=== PATIENT | female | born 2005 | race Caucasian/White ===

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

== ENCOUNTER 2024-12-02 01:36 | Inpatient (IN) | payer BC ==
[~2024-12-02] VITALS: Ht 162.6 cm; Wt 49.8 kg
[~2024-12-02 01:36] MED LIST: FLUO-351 PO
[2024-12-02] MEDS ORDERED: ZOLPIDEM TARTRATE 10 MG TABLET PO PRN (03:30)
[2024-12-02 04:59] VITALS: RESP 20
[2024-12-02] MEDS ORDERED: LORazepam 2 MG/ML VIAL ONE (05:19)
[2024-12-02 05:35] LABS: GLUCOMETER DEV NAME(LOC) POC.BV; POC SARS-COV2 AG, FIA NEGATIVE (NEGATIVE)
[2024-12-02] MEDS: LORazepam 2 MG/ML VIAL IM ONE (05:49)
[2024-12-02] MEDS ORDERED: INFLUENZA VIRUS VACCINE TVS (6MO+) 2025-26/PF 45 MCG/0.5 ML SYRINGE IM. ONE (06:45)
[2024-12-02 08:26] VITALS: RESP 18
[2024-12-02] MEDS: AMOX TR/POT CLAV 500 MG/125 MG TABLET PO SCH (09:00)
[2024-12-02] MEDS ORDERED: ACETAMINOPHEN 325 MG TABLET PO PRN (12:45)
[2024-12-02] MEDS ORDERED: GuaiFENesin/D-METHORPHAN [SUGAR-FREE] 200-20MG/10 ML SYRUP UDCUP PO PRN (12:45)
[2024-12-02] MEDS ORDERED: PROMETHAZINE HCL 25 MG TABLET PO PRN (12:45)
[2024-12-02] MEDS: MELATONIN 5 MG TABLET PO ONE (12:45)
[2024-12-02] MEDS ORDERED: MAGNESIUM HYDROXIDE SUSPENSION 30 ML UDCUP PO PRN (12:45)
[2024-12-02] MEDS ORDERED: MAG HYDROX/ALUMINUM HYD/SIMETH ES 30 ML SUSPENSION UDCUP PO PRN (12:45)
[2024-12-02] MEDS ORDERED: LOPERAMIDE HCL 2 MG CAPSULE PO PRN (12:45)
[2024-12-02] MEDS ORDERED: TUBERCULIN, PURIFIED PROTEIN DERIVATIVE 5 TU/0.1 ML SYRINGE ID ONE (12:45)
[2024-12-02] MEDS: THIAMINE 100 MG TABLET PO SCH (17:00)
[2024-12-02] MEDS ORDERED: DIVALPROEX SODIUM 500 MG ER TABLET PO SCH (21:00)
[2024-12-02] MEDS: OLANZapine 5 MG RAPDIS TABLET PO SCH (22:00)
[2024-12-02 23:05] VITALS: RESP 18
[2024-12-03] MEDS: NALTREXONE HCL 50 MG TABLET PO SCH (08:34)
[2024-12-03] MEDS: FOLIC ACID 1 MG TABLET PO SCH (08:34)
[2024-12-03] MEDS: MULTIVITAMINS WITH MINERALS, THERAPEUTIC TABLET PO SCH (08:34)
[2024-12-03 08:44] VITALS: BP 122/82; PULSE 72; RESP 16; TEMP 97.5; O2SAT 100
[2024-12-03] MEDS ORDERED: ACETAMINOPHEN 325 MG TABLET PO PRN (08:45)
[2024-12-03] MEDS ORDERED: LOPERAMIDE HCL 2 MG CAPSULE PO PRN (17:00)
[2024-12-03] MEDS ORDERED: MAG HYDROX/ALUMINUM HYD/SIMETH ES 30 ML SUSPENSION UDCUP PO PRN (17:00)
[2024-12-03] MEDS ORDERED: TUBERCULIN, PURIFIED PROTEIN DERIVATIVE 5 TU/0.1 ML SYRINGE ID ONE (17:00)
[2024-12-03] MEDS ORDERED: PROMETHAZINE HCL 25 MG TABLET PO PRN (17:00)
[2024-12-03] MEDS ORDERED: MAGNESIUM HYDROXIDE SUSPENSION 30 ML UDCUP PO PRN (17:00)
[2024-12-03 20:37] VITALS: BP 113/78; PULSE 77; RESP 18; TEMP 97.5; O2SAT 95
[2024-12-04 09:00] VITALS: BP 118/76; PULSE 84; RESP 15; TEMP 97.5; O2SAT 98
[2024-12-04 13:39] VITALS: RESP 16
[2024-12-04] MEDS: IBUPROFEN 600 MG TABLET PO PRN (13:39)
[2024-12-04 14:39] VITALS: RESP 16
[2024-12-04] MEDS ORDERED: OLAN5TAB94 PO (21:30)
[2024-12-04] MEDS ORDERED: NALT50TA33 PO (21:30)
[2024-12-04] MEDS ORDERED: FLUO-418 PO (21:30)
== END 2024-12-04 22:00 | disposition short-term general hospital (02) | DRG 885 ==
LOC: B2S 03:23
PROVIDERS: ADMIT Psychiatry & Neurology Psychiatry; ATTEND Psychiatry & Neurology Psychiatry
PROC: GZHZZZZ Group Psychotherapy (ICD-10-PCS; principal; 2024-12-02)
PROC: GZ58ZZZ Individual Psychotherapy, Cognitive-Behavioral (ICD-10-PCS; 2024-12-02)
PROC: GZ56ZZZ Individual Psychotherapy, Supportive (ICD-10-PCS; 2024-12-02)
DX: F25.9 Schizoaffective disorder, unspecified (principal); Z59.02 Unsheltered homelessness; Z20.822 Contact with and (suspected) exposure to COVID-19; F17.200 Nicotine dependence, unspecified, uncomplicated; Z55.9 Problems related to education and literacy, unspecified; Z59.9 Problem related to housing and economic circumstances, unspecified; Z62.810 Personal history of physical and sexual abuse in childhood; Z63.9 Problem related to primary support group, unspecified; Z65.3 Problems related to other legal circumstances
CPT/HCPCS: J1200; J1630; J2060

== ENCOUNTER 2024-12-03 21:09 | Emergency (ER) | payer BC ==
[~2024-12-03] VITALS: Ht 162.6 cm; Wt 50.0 kg
[2024-12-03 22:14] VITALS: TEMP 97.9
[2024-12-03] MEDS: ACETAMINOPHEN 500 MG TABLET PO ONE (23:06)
[2024-12-03 23:07] VITALS: BP 112/59; PULSE 61; RESP 14; O2SAT 98
[2024-12-03] MEDS: IBUPROFEN 400 MG TABLET PO ONE (23:07)
[2024-12-04] MEDS ORDERED: OLAN5TAB94 PO (21:30)
[2024-12-04] MEDS ORDERED: NALT50TA33 PO (21:30)
[2024-12-04] MEDS ORDERED: FLUO-418 PO (21:30)
== END 2024-12-04 02:08 | disposition home or self-care (01) ==
LOC: EMS 21:10
DX: L02.416 Cutaneous abscess of left lower limb (principal); L03.116 Cellulitis of left lower limb; F12.90 Cannabis use, unspecified, uncomplicated; F10.90 Alcohol use, unspecified, uncomplicated; Z79.899 Other long term (current) drug therapy; Y90.9 Presence of alcohol in blood, level not specified
CPT/HCPCS: 99285; 73562-TC; Z7502; Z7610

== ENCOUNTER 2024-12-04 15:27 | Inpatient (IN) | payer BC ==
[~2024-12-04] VITALS: Ht 162.6 cm; Wt 50.0 kg
[2024-12-04 16:35] LABS: PLATELET COUNT (AUTO) 298 K/uL (150-450); RED BLOOD CELL COUNT(AUTO) 3.60 MIL/uL (4.00-5.20); RED CELL DISTRIBUTION WIDTH 14.9 % (11.5-14.5); WHITE BLOOD COUNT (AUTO) 7.3 K/uL (4.5-11.0)
[2024-12-04 16:40] LABS: CALCIUM, TOTAL 8.5 mg/dL (8.8-10.5); CREATININE 0.71 mg/dL (0.60-1.30); GLOMERULAR FILTR. RATE CALC > 60 mL/min (>60); GLUCOSE,RANDOM 124 mg/dL (70-110); SODIUM SERUM 138 mmol/L (136-145); UREA NITROGEN, BLOOD 4 mg/dL (7-18)
[2024-12-04] MEDS ORDERED: MAGNESIUM HYDROXIDE SUSPENSION 30 ML UDCUP PO PRN (16:45)
[2024-12-04] MEDS ORDERED: ZOLPIDEM TARTRATE 5 MG TABLET PO PRN (16:45)
[2024-12-04] MEDS ORDERED: ONDANSETRON HCL 4 MG/2 ML VIAL IVP PRN (16:45)
[2024-12-04 16:50] LABS: LACTIC ACID 0.7 mmol/L (0.4-2.0)
[2024-12-04] MEDS: PIPERACILLIN/TAZO 3.375 GM/D5W 50 ML IV ONE (17:41)
[2024-12-04] MEDS: VANCOMYCIN HCL 1.25 GM in DEXTROSE 5%-WATER 250 ML IV ONE (17:41)
[2024-12-04] MEDS: BACITRACIN 0.9 GM PACKET OINTMENT TP ONE (17:42)
[2024-12-04] MEDS: PERTUSS(ACELL),DIPH,TET/PF 0.5 ML SYRINGE [ADULT] IM. ONE (17:44)
[2024-12-04] MEDS ORDERED: IOHEXOL 350 MG/ML 100 ML VIAL ONE (18:00)
[2024-12-04] MEDS ORDERED: SODIUM CHLORIDE 0.9% 100 ML ONE (18:00)
[2024-12-04] MEDS ORDERED: 0.9% SODIUM CHLORIDE 10 ML SYRINGE IVP ONE (18:00)
[2024-12-04] MEDS: DOCUSATE SODIUM 100 MG CAPSULE PO SCH (21:00)
[2024-12-04] MEDS ORDERED: OLAN5TAB94 PO (21:30)
[2024-12-04] MEDS ORDERED: NALT50TA33 PO (21:30)
[2024-12-04] MEDS ORDERED: FLUO-418 PO (21:30)
[2024-12-04 22:00] VITALS: BP 119/66; PULSE 74; RESP 18; TEMP 97.9; O2SAT 100
[2024-12-04] MEDS: PIPERACILLIN/TAZO 3.375 GM/D5W 50 ML IV SCH (23:00)
[2024-12-04] MEDS ORDERED: SODIUM CHLORIDE 0.9% 1,000 ML ONE (23:16)
[2024-12-05] MEDS: VANCOMYCIN HCL 750 MG in DEXTROSE 5%-WATER 250 ML IV SCH
[2024-12-05 04:20] VITALS: BP 111/69; PULSE 52; RESP 17; TEMP 98; O2SAT 100
[2024-12-05 07:46] VITALS: BP 113/55; PULSE 56; RESP 18; TEMP 97.5; O2SAT 98
[2024-12-05] MEDS: FAMOTIDINE 20 MG TABLET PO SCH (09:00)
[2024-12-05] MEDS: OxyCODONE HCL/ACETAMINOPHEN 5-325 MG TABLET PO PRN (09:15)
[2024-12-05] MEDS: ETHYL ALCOHOL 62% ANTISEPTIC NASAL SANITIZER 0.6 ML AMPUL NASAL ONE (09:17)
[2024-12-05] MEDS: RINGERS SOLUTION,LACTATED 1,000 ML IV ONE (09:23)
[2024-12-05] MEDS ORDERED: GABAPENTIN 300 MG CAPSULE PO PRN (10:45)
[2024-12-05 15:49] VITALS: BP 98/57; PULSE 54; RESP 18; TEMP 98.1; O2SAT 98
[2024-12-05] MEDS: HEPARIN SODIUM,PORCINE 5,000 UNITS/ML VIAL SQ SCH (16:00)
[2024-12-05] MEDS: THIAMINE 100 MG TABLET PO SCH (20:19)
[2024-12-05] MEDS: OLANZapine 5 MG RAPDIS TABLET PO SCH (20:19)
[2024-12-05 20:24] VITALS: BP 118/55; PULSE 62; RESP 18; TEMP 98.4; O2SAT 96
[2024-12-06 06:02] VITALS: BP 104/57; PULSE 54; RESP 18; TEMP 97.9; O2SAT 96
[2024-12-06 08:08] VITALS: BP 109/59; PULSE 60; RESP 18; TEMP 97.5; O2SAT 98
[2024-12-06 09:07] LABS: CALCIUM, TOTAL 8.2 mg/dL (8.8-10.5); CREATININE 0.61 mg/dL (0.60-1.30); GLOMERULAR FILTR. RATE CALC > 60 mL/min (>60); GLUCOSE,RANDOM 99 mg/dL (70-110); SODIUM SERUM 139 mmol/L (136-145); UREA NITROGEN, BLOOD 7 mg/dL (7-18)
[2024-12-06] MEDS: MULTIVITAMINS WITH MINERALS, THERAPEUTIC TABLET PO SCH (09:12)
[2024-12-06] MEDS: FOLIC ACID 1 MG TABLET PO SCH (09:12)
[2024-12-06 09:20] LABS: CHOL/HDL RATIO 3.0 (3.9-5.7); HCG,QUANTITATIVE < 1 mIU/mL (0-6); LDL CHOL (CALC.) 65 mg/dL (0-130)
[2024-12-06 16:02] VITALS: BP 111/61; PULSE 61; RESP 18; TEMP 97.7; O2SAT 99
[2024-12-06] MEDS: ACETAMINOPHEN 325 MG TABLET PO PRN (18:15)
[2024-12-06 20:00] VITALS: BP 112/61; PULSE 58; RESP 18; TEMP 98.6; O2SAT 96
[2024-12-07 04:00] VITALS: BP 122/73; PULSE 57; RESP 16; TEMP 98.4; O2SAT 99
[2024-12-07 08:17] VITALS: BP 113/51; PULSE 62; RESP 16; TEMP 98.8; O2SAT 96
[2024-12-07 09:19] VITALS: BP 116/63; PULSE 60; RESP 18; O2SAT 97
[2024-12-07 09:34] LABS: PLATELET COUNT (AUTO) 374 K/uL (150-450); RED BLOOD CELL COUNT(AUTO) 3.94 MIL/uL (4.00-5.20); RED CELL DISTRIBUTION WIDTH 14.8 % (11.5-14.5); WHITE BLOOD COUNT (AUTO) 3.3 K/uL (4.5-11.0)
[2024-12-07 09:42] LABS: CALCIUM, TOTAL 8.5 mg/dL (8.8-10.5); CREATININE 0.67 mg/dL (0.60-1.30); GLOMERULAR FILTR. RATE CALC > 60 mL/min (>60); GLUCOSE,RANDOM 172 mg/dL (70-110); SODIUM SERUM 136 mmol/L (136-145); UREA NITROGEN, BLOOD 6 mg/dL (7-18)
[2024-12-07 17:13] VITALS: BP 124/58; PULSE 60; RESP 16; TEMP 97.9; O2SAT 98
[2024-12-07 20:15] VITALS: BP 113/58; PULSE 57; RESP 18; TEMP 97.7; O2SAT 98
[2024-12-08 05:00] VITALS: BP 110/69; PULSE 52; RESP 18; TEMP 98.1; O2SAT 96
[2024-12-08 07:43] LABS: CALCIUM, TOTAL 8.4 mg/dL (8.8-10.5); CREATININE 0.77 mg/dL (0.60-1.30); GLOMERULAR FILTR. RATE CALC > 60 mL/min (>60); GLUCOSE,RANDOM 100 mg/dL (70-110); SODIUM SERUM 139 mmol/L (136-145); UREA NITROGEN, BLOOD 7 mg/dL (7-18)
[2024-12-08 08:05] VITALS: BP 102/65; PULSE 55; RESP 18; TEMP 98.6; O2SAT 99
[2024-12-08] MEDS: OxyCODONE HCL/ACETAMINOPHEN 5-325 MG TABLET PO PRN (08:27)
[2024-12-08 16:38] VITALS: BP 124/69; PULSE 64; RESP 18; TEMP 97.7; O2SAT 99
[2024-12-08 19:20] VITALS: BP 111/66; PULSE 58; RESP 18; TEMP 97.9; O2SAT 98
[2024-12-09 05:30] VITALS: BP 124/76; PULSE 63; RESP 18; TEMP 97.9; O2SAT 96
[2024-12-09 07:57] LABS: CALCIUM, TOTAL 8.4 mg/dL (8.8-10.5); CREATININE 0.58 mg/dL (0.60-1.30); GLOMERULAR FILTR. RATE CALC > 60 mL/min (>60); GLUCOSE,RANDOM 90 mg/dL (70-110); SODIUM SERUM 141 mmol/L (136-145); UREA NITROGEN, BLOOD 7 mg/dL (7-18)
[2024-12-09 08:30] VITALS: BP 133/71; PULSE 57; RESP 20; TEMP 97.9; O2SAT 100
[2024-12-09 16:00] VITALS: BP 118/63; PULSE 66; RESP 20; TEMP 97.9; O2SAT 99
[2024-12-09] MEDS: OLANZapine 5 MG RAPDIS TABLET PO PRN (16:23)
[2024-12-09 19:50] VITALS: BP 132/72; PULSE 76; RESP 18; TEMP 98.1; O2SAT 100
[2024-12-10 04:55] VITALS: BP 130/70; PULSE 70; RESP 18; TEMP 97.6; O2SAT 98
[2024-12-10 06:57] LABS: CALCIUM, TOTAL 8.4 mg/dL (8.8-10.5); CREATININE 0.60 mg/dL (0.60-1.30); GLOMERULAR FILTR. RATE CALC > 60 mL/min (>60); GLUCOSE,RANDOM 94 mg/dL (70-110); SODIUM SERUM 141 mmol/L (136-145); UREA NITROGEN, BLOOD 5 mg/dL (7-18)
[2024-12-10] MEDS: CHLORHEXIDINE GLUCONATE 2% TOWELETTE [2'S/6'S] TP ONE (07:50)
[2024-12-10] MEDS: TUBERCULIN, PURIFIED PROTEIN DERIVATIVE 5 TU/0.1 ML SYRINGE ID ONE (07:50)
[2024-12-10 08:00] VITALS: BP 116/66; PULSE 67; RESP 19; TEMP 98.1; O2SAT 97
[2024-12-10] MEDS ORDERED: LEVO750T68 PO (11:10)
== END 2024-12-10 14:30 | disposition home or self-care (01) | DRG 549 ==
LOC: EMS 15:27 → EDH 16:34 → 6S 21:30
PROVIDERS: ADMIT Internal Medicine; ATTEND Internal Medicine
DX: M00.862 Arthritis due to other bacteria, left knee (principal); E44.0 Moderate protein-calorie malnutrition; L02.416 Cutaneous abscess of left lower limb; L03.116 Cellulitis of left lower limb; M71.162 Other infective bursitis, left knee; F31.30 Bipolar disorder, current episode depressed, mild or moderate severity, unspecified; F19.10 Other psychoactive substance abuse, uncomplicated; Z68.1 Body mass index [BMI] 19.9 or less, adult; F15.90 Other stimulant use, unspecified, uncomplicated; Z91.410 Personal history of adult physical and sexual abuse; Z79.899 Other long term (current) drug therapy
CPT/HCPCS: 73701; 80048; 80061; 80202; 83036; 83605; 84702; 84703; 85025; 86592; 87040; 87070; 87081; 87186; 87205; 90715; 99285; J1644; J2543; J3374; J7030; J7050; J7060